=== PATIENT | female | born 2000 | race Two or more races ===

== ENCOUNTER 2025-04-27 20:03 | Emergency (ER) | payer MEDICAID, OTHER ==
[~2025-04-27] VITALS: Ht 160 cm; Wt 65.9 kg
[2025-04-27 20:27] VITALS: BP 110/64; PULSE 76; RESP 17; TEMP 98.9; O2SAT 96
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
== END 2025-04-27 20:28 | disposition home or self-care (01) ==
LOC: ER 20:03
DX: S01.01XD Laceration without foreign body of scalp, subsequent encounter (principal); Z48.02 Encounter for removal of sutures; X58.XXXD Exposure to other specified factors, subsequent encounter